=== PATIENT | male | born 1995 | race Two or more races ===

== ENCOUNTER 2020-03-03 00:08 | Emergency (ER) | payer OTHER ==
[~2020-03-03] VITALS: Ht 172.7 cm; Wt 83.0 kg
[2020-03-03 02:38] VITALS: BP 114/88
== END 2020-03-03 02:52 | disposition home or self-care (01) ==
LOC: ER 00:08
DX: J40 Bronchitis, not specified as acute or chronic (principal); R03.0 Elevated blood-pressure reading, without diagnosis of hypertension
CPT/HCPCS: 71045; 99283